=== PATIENT | male | born 1995 | race Hispanic/Latino ===

== ENCOUNTER 2023-06-22 16:09 | Emergency (ER) | payer OTHER, SELFPAY ==
[2023-06-22] MEDS ORDERED: HYDROcodone/Acetaminophen 10/325 mg Tablet ONE (16:24)
[2023-06-22] MEDS ORDERED: Boostrix 0.5 ML (Tdap) VIAL (>/=7 yrs of age) ONE (16:24)
[2023-06-22] MEDS ORDERED: Lidocaine 2% PF 5 ML VIAL ONE (16:29)
[2023-06-22] MEDS ORDERED: Bacitracin 1 PK ONE (17:37)
== END 2023-06-22 17:35 | disposition home or self-care (01) ==
LOC: BURERS 16:09
DX: S01.412A Laceration without foreign body of left cheek and temporomandibular area, initial encounter (principal); W26.8XXA Contact with other sharp object(s), not elsewhere classified, initial encounter; Z23 Encounter for immunization
CPT/HCPCS: 12014; 70486; 90471; 90715; J2001

== ENCOUNTER 2023-06-29 11:04 | Emergency (ER) | payer SELFPAY | END 2023-06-29 11:35 | disposition home or self-care (01) | LOC: BURERS 11:04 | DX: S01.81XD Laceration without foreign body of other part of head, subsequent encounter (principal); X58.XXXD Exposure to other specified factors, subsequent encounter ==